=== PATIENT | male | born 1960 | race Caucasian/White ===

== ENCOUNTER 2024-02-27 16:04 | Emergency (ER) | payer BC ==
[2024-02-27 16:35] LABS: Absolute Basophils 0.1 K/uL (0-0.5); Absolute Eosinophils 0.1 K/uL (0-0.5); Absolute Monocytes 1.1 K/uL (0.1-1.3); Absolute Neutrophil 5.5 K/uL (1.8-8.0); Basophils % 0.9 % (0-1.3); Eosinophils % 1.3 % (0-4.4); Hematocrit 41.6 % (39.6-49.0); Hemoglobin 13.9 g/dL (13.6-17.9); Lymphocytes % 22.7 % (15.3-44.8); MCHC 33.5 g/dL (32.0-36.0); MCV 89.6 fL (80-100); MPV 6.8 fL (7.6-11.3); Monocytes % 12.1 % (3.3-12.3); Platelets 268 thou/uL (152-406); RBC Red Blood Cell Count 4.64 M/uL (4.33-5.43); Red Cell Distribution Width 14.5 % (12.1-15.2)
[2024-02-27 16:48] LABS: SARS-CoV-2 Antigen CONTROL BLUE LINE VIS/BG OK; SARS-CoV-2 Antigen Rapid Res Negative (Negative)
[2024-02-27 16:54] LABS: Anion Gap 8.8 mEq/L (5.0-15.0); Magnesium 1.7 mg/dL (1.6-2.4); Potassium 3.8 mEq/L (3.5-5.1); Troponin High Sensitivity 7.9 pg/mL (<58.9)
--- NOTE | 2024-02-27 17:01 | RAD REPORT ---
EXAM DESCRIPTION: Cora Single View02/27/2024 4:38 pm CLINICAL HISTORY: Shortness breath COMPARISON: none FINDINGS: The lungs appear clear of acute infiltrate. The heart is probably upper limits normal siz e IMPRESSION: No acute abnormalities displayed
[2024-02-27] MEDS ORDERED: METHYLPREDNISOLONE 125 MG INJ ONE (18:28)
--- NOTE | 2024-02-27 18:32 | EDPHYS ---
Physician Documentation [facility] Name: Lincoln Nassar Age: 63 yrs Sex: Male : 1960 Arrival Date: 02/27/2024 Time: 16:04 Bed 18 Private MD: ED Physician Rico Garvey HPI: 02/26 16:11 This 63 yrs old Male presents to ER via Unassigned with complaints of Shortness Of kb Breath, Breathing Difficulty. 16:11 Pt is a 63 year old male who presents for orthopnea since 0300. States he feels better kb when he is moving around. Denies chest pain, fever. Reports cough. States he mowed the yard a couple of days ago and believes this is due to allergies. Also reports decreased appetite. Historical: - Allergies: 16:15 No Known Allergies; ap3 - PMHx: 16:15 Hypertensive disorder; Diabetes mellitus; ap3 - PSHx: 16:15 cardiac stents; ap3 - Immunization history:: Client reports having NOT received the Covid vaccine. Last tetanus immunization: unknown, Flu vaccine is not up to date. - Infectious Disease History:: Denies. - Social history:: Smoking status: Patient denies any tobacco usage or history of. ROS: 17:56 Constitutional: As per HPI kb Exam: 17:56 Constitutional: This is a well developed, well nourished patient who is awake, alert, kb and in no acute distress. Head/Face: Normocephalic, atraumatic. ENT: Moist Mucous membranes Cardiovascular: Regular rate Respiratory: Respirations even and unlabored. No increased work of breathing. Talking in full sentences Abdomen/GI: Soft, non-tender. No distention Skin: Warm, dry with normal turgor. Normal color. MS/ Extremity: Pulses equal, no cyanosis. Neurovascular intact. Full, normal range of motion. Neuro: Awake and alert, GCS 15, oriented to person, place, time, and situation. Moves all extremities. Normal gait. Vital Signs: 16:13 BP 171 / 89; Pulse 87; Resp 20; Temp 98.7; Pulse Ox 96% on R/A; Weight 107.95 kg; ap3 Height 5 ft. 9 in. ; 16:59 BP 156 / 71; Pulse 88; Resp 18; Pulse Ox 100% on R/A; mb9 18:27 BP 143 / 86; Pulse 81; Resp 18; Pulse Ox 99% on R/A; mb9 16:13 Body Mass Index 35.15 (107.95 kg, 175.26 cm) ap3 MDM: 16:10 Patient medically screened. kb 18:29 Differential diagnosis: CHF, pulmonary edema. pneumonia, flu, covid, uri. Data kb reviewed: vital signs, nurses notes. I considered the following discharge prescriptions or medication management in the emergency department I discussed and recommended Over The Counter medications, Antibiotics: At this time antibiotics are not recommended. Counseling: I had a detailed discussion with the patient and/or guardian regarding the historical points, exam findings, and any diagnostic results supporting the discharge/admit diagnosis, lab results, radiology results, the need for outpatient follow up, a family practitioner, to return to the emergency department if symptoms worsen or persist or if there are any questions or concerns that arise at home. ED course: At bedside to reassess patient. Patient remains awake, alert and at baseline mentation. Patient appears stable. Patient exhibits no visible signs of distress. Patient respirations even and unlabored. I discussed patient's diagnosis, differential diagnosis, expected course of illness, at home recommendations and strict return precautions. I advised patient to follow-up with PCP in 2 to 3 days. I explained all diagnostic results with the patient and answered all questions that patient had regarding the most likely diagnosis. I emphasized the need for close outpatient follow-up and care from primary care provider/specialist and went through careful and detailed return precautions with patient. Patient expressed full understanding of such and agrees with plan for discharge today. Feel patient is stable and appropriate for discharge and ongoing management of condition at home at this time.. ED course: Pt reports he is starting to have difficulty breathing while laying on the stretcher due to nasal congestion. . 02/26 16:13 Order name: Basic Metabolic Panel; Complete Time: 17:04 kb 02/26 16:13 Order name: CBC with Diff; Complete Time: 16:48 kb 02/26 16:13 Order name: Magnesium; Complete Time: 17:04 kb 02/26 16:13 Order name: NT PRO-BNP; Complete Time: 17:04 kb 02/26 16:13 Order name: Troponin HS; Complete Time: 17:04 kb 02/26 16:13 Order name: Flu; Complete Time: 18:19 kb 02/26 16:13 Order name: SARS-COV-2 Antigen Rapid; Complete Time: 16:52 kb 02/26 16:13 Order name: XRAY Chest (1 view); Complete Time: 17:04 kb 02/26 16:13 Order name: Cardiac monitoring; Complete Time: 16:18 kb 02/26 16:13 Order name: EKG - Nurse/Tech; Complete Time: 16:28 kb 02/26 16:13 Order name: IV Saline Lock; Complete Time: 16:28 kb 02/26 16:13 Order name: Labs collected and sent; Complete Time: 16:28 kb 02/26 16:13 Order name: O2 Per Protocol; Complete Time: 16:18 kb 02/26 16:13 Order name: O2 Sat Monitoring; Complete Time: 16:18 kb Administered Medications: 18:30 Drug: MethylPrednisoLONE IVP 125 mg IVP once Route: IVP; Site: right antecubital; mb9 18:32 Follow up: Response: No adverse reaction mb9 Disposition: 17:29 I was immediately available on-site in the Emergency Department for consultation in the ms3 care of the patient. Disposition Summary: 02/27/24 18:31 Discharge Ordered Notes: Location: Home kb Condition: Stable kb Diagnosis - Allergic rhinitis, unspecified kb Followup: kb - With: Emergency Department - When: As needed - Reason: Worsening of condition Followup: kb - With: Private Physician - When: 2 - 3 days - Reason: Recheck today's complaints, Continuance of care, Re-evaluation by your physician Discharge Instructions: - Discharge Summary Sheet kb - Upper Respiratory Infection, Adult, [id number] kb - Allergic Rhinitis, Adult, [id number] kb Forms: - Medication Reconciliation Form kb - Antibiotic Education kb - Prescription Opioid Use kb - Patient Portal Instructions kb - Leadership Thank You Letter kb Signatures: Dispatcher [employer] EDJoyce Larkin, [employer]ING [employer] OPERATOR-C [employer]ING [employer]ANT OPERATOR-Trudy Nguyen RN RN [id number] Rico Garvey DO DO ms3 Shoshana Swanson RN RN mb9 Corrections: (The following items were deleted from the chart) 16:14 16:14 BASIC METABOLIC PANEL+C.LAB.BRZ ordered. EDMS EDMS 16:14 16:14 CBC+H.LAB.BRZ ordered. EDMS EDMS 16:14 16:14 MAGNESIUM+C.LAB.BRZ ordered. EDMS EDMS 16:14 16:14 PROBNP+C.LAB.BRZ ordered. EDMS EDMS 16:14 16:14 Troponin High Sensitivity+C.LAB.BRZ ordered. EDMS EDMS 16:14 16:14 Influenza Screen (A \T\ B)+BA.LAB.BRZ ordered. EDMS EDMS 16:14 16:14 SARS-COV-2 Antigen Rapid+I.LAB.BRZ ordered. EDMS EDMS 16:14 16:14 Chest Single View+RAD.RAD.BRZ ordered. EDMS EDMS 18:31 16:11 Pt is a 63 year old male who presents for orthopnea since 0300. States he feels kb better when he is moving around. Denies chest pain, fever. Reports cough. States he mowed the yard a couple of days ago and believes this is due to allergies. . kb
--- NOTE | 2024-02-27 18:32 | ER ---
Nurse's Notes [facility] Name: Lincoln Nassar Age: 63 yrs Sex: Male : 1960 Arrival Date: 02/27/2024 Time: 16:04 Bed 18 Private MD: Diagnosis: Allergic rhinitis, unspecified Presentation: 02/26 16:13 Chief complaint: Patient states: he started having shortness of breath and difficulty ap3 breathing this morning. patient states that the feeling is worse when laying down. Coronavirus screen: At this time, the client does not indicate any symptoms associated with coronavirus-19. Ebola Screen: No symptoms or risks identified at this time. Initial Sepsis Screen: Does the patient meet any 2 criteria? No. Patient's initial sepsis screen is negative. Does the patient have a suspected source of infection? No. Patient's initial sepsis screen is negative. Risk Assessment: Do you want to hurt yourself or someone else? Patient reports no desire to harm self or others. Onset of symptoms was February 27, 2024. 16:13 Method Of Arrival: Ambulatory ap3 16:13 Acuity: JOES 3 ap3 Triage Assessment: 16:16 General: Appears in no apparent distress. Behavior is calm, cooperative, appropriate ap3 for age. Pain: Denies pain. Neuro: Level of Consciousness is awake, alert, obeys commands, Oriented to person, place, time, situation. Cardiovascular: Patient's skin is warm and dry. Respiratory: Reports shortness of breath at rest on exertion Airway is patent Respiratory effort is even, unlabored, Respiratory pattern is regular, symmetrical, Onset: The symptoms/episode began/occurred this morning. 16:20 Respiratory: the patient has mild shortness of breath. mb9 Historical: - Allergies: 16:15 No Known Allergies; ap3 - PMHx: 16:15 Hypertensive disorder; Diabetes mellitus; ap3 - PSHx: 16:15 cardiac stents; ap3 - Immunization history:: Client reports having NOT received the Covid vaccine. Last tetanus immunization: unknown, Flu vaccine is not up to date. - Infectious Disease History:: Denies. - Social history:: Smoking status: Patient denies any tobacco usage or history of. Screenin:16 Abuse screen: Denies threats or abuse. Nutritional screening: No deficits noted. ap3 Tuberculosis screening: No symptoms or risk factors identified. 16:33 [facility] ED Fall Risk Assessment (Adult) History of falling in the last 3 months, mb9 including since admission No falls in past 3 months (0 pts) Confusion or Disorientation No (0 pts) Intoxicated or Sedated No (0 pts) Impaired Gait No (0 pts) Mobility Assist Device Used No (0 pt) Altered Elimination No (0 pt) Score/Fall Risk Level 0 - 2 = Low Risk Oriented to surroundings, Maintained a safe environment, Educated pt \T\ family on fall prevention, incl call for assistance when getting out of bed, Provided non-skid footwear. Assessment: 16:32 General: Appears in no apparent distress. Behavior is calm, cooperative. Pain: Denies mb9 pain. Neuro: Hwang Agitation-Sedation Scale (RASS): 0 - Alert and Calm Level of Consciousness is awake, alert, obeys commands, Oriented to person, place, time, situation, Appropriate for age. Cardiovascular: Reports shortness of breath, Heart tones S1 S2 present Patient's skin is warm and dry. Rhythm is regular. Respiratory: Reports shortness of breath at rest Airway is patent Respiratory effort is even, unlabored, Respiratory pattern is regular, symmetrical, Breath sounds are clear bilaterally. GI: Abdomen is round non-distended, Bowel sounds present X 4 quads. Abd is soft and non tender X 4 quads. : No signs and/or symptoms were reported regarding the genitourinary system. EENT: No signs and/or symptoms were reported regarding the EENT system. Derm: Skin is pink, warm \T\ dry. Musculoskeletal: Range of motion: intact in all extremities. 18:00 Reassessment: No changes from previously documented assessment. Patient and/or family mb9 updated on plan of care and expected duration. Pain level reassessed. Patient is alert, oriented x 3, equal unlabored respirations, skin warm/dry/pink. Vital Signs: 16:13 BP 171 / 89; Pulse 87; Resp 20; Temp 98.7; Pulse Ox 96% on R/A; Weight 107.95 kg; ap3 Height 5 ft. 9 in. ; 16:59 BP 156 / 71; Pulse 88; Resp 18; Pulse Ox 100% on R/A; mb9 18:27 BP 143 / 86; Pulse 81; Resp 18; Pulse Ox 99% on R/A; mb9 16:13 Body Mass Index 35.15 (107.95 kg, 175.26 cm) ap3 ED Course: 16:06 Patient arrived in ED. rg4 16:08 Rico Garvey DO is Attending Physician. ms3 16:09 Joyce Altman FNP-C [facility]. kb 16:15 Triage completed. ap3 16:15 Shoshana Swanson, RN is Primary Nurse. mb9 16:16 Arm band placed on left wrist. ap3 16:27 SARS-COV-2 Antigen Rapid Sent. mb9 16:28 Flu Sent. mb9 16:31 Initial lab(s) drawn, by or, sent to lab. EKG done, by ED staff, reviewed by Joyce SUAREZ. Inserted saline lock: 20 gauge in right antecubital area, using aseptic technique. Blood collected. 16:33 Placed in gown. Bed in low position. Call light in reach. Side rails up X 1. Provided alyx Education on: press call light if needing anything. Client placed on continuous cardiac and pulse oximetry monitoring. NIBP monitoring applied. youth nutritional monitor on. Door closed. Noise minimized. Warm blanket given. 16:33 No provider procedures requiring assistance completed. mb9 16:39 XRAY Chest (1 view) In Process Unspecified. EDMS 18:32 IV discontinued, intact, bleeding controlled, No redness/swelling at site. Pressure mb9 dressing applied. Administered Medications: 18:30 Drug: MethylPrednisoLONE IVP 125 mg IVP once Route: IVP; Site: right antecubital; mb9 18:32 Follow up: Response: No adverse reaction mb9 Medication: 16:33 VIS not applicable for this client. mb9 Outcome: 18:31 Discharge ordered by . kb 18:39 Discharged to home ambulatory, mb9 18:39 Condition: stable 18:39 Discharge instructions given to patient, Instructed on discharge instructions, follow up and referral plans. Demonstrated understanding of instructions, follow-up care, 18:40 Patient left the ED. mb9 Signatures: Dispatcher [employer] EDMS Joyce Altman FNP-C FNP-Ckb Garcia, Rubi rg4 Trudy Mujica RN RN ap3 Rico Garvey DO DO ms3 Shoshana Swanson, RN RN mb9
[2024-02-27 18:57] VITALS: BP 143/86; TEMP 98.7; O2SAT 99
== END 2024-02-27 18:40 | disposition home or self-care (01) ==
LOC: ER 16:04
DX: J30.9 Allergic rhinitis, unspecified (principal); R05.9 Cough, unspecified; Z11.52 Encounter for screening for COVID-19; Z95.818 Presence of other cardiac implants and grafts; Z28.310 Unvaccinated for COVID-19
CPT/HCPCS: 85025; 80048; 36415; 83735; 84484; 83880; 87804 ×2; 71045; 87811; J2919; 93005